=== PATIENT | female | born 1995 | race African-American/Black ===

== ENCOUNTER 2022-07-12 19:47 | Emergency (ER) | payer OTHER ==
[~2022-07-12] VITALS: Ht 162.6 cm; Wt 77.0 kg
[2022-07-12 19:49] VITALS: BP 153/83
== END 2022-07-12 23:26 | disposition left against medical advice (07) ==
LOC: ER 19:47
DX: Z53.21 Procedure and treatment not carried out due to patient leaving prior to being seen by health care provider (principal)
CPT/HCPCS: 99281